=== PATIENT | male | born 1945 | race Two or more races ===

== ENCOUNTER 2024-08-20 17:51 | Emergency (ER) | payer MEDICARE, BC, SELFPAY ==
[2024-08-20 18:23] VITALS: BP 147/97; PULSE 69; RESP 18; TEMP 37.1; O2SAT 96
[2024-08-20 19:19] VITALS: PULSE 88; RESP 16; O2SAT 98
--- NOTE | 2024-08-20 19:47 | XR_ITS ---
Examination: CT cervical spine without contrast 2-D sagittal reconstructions 2-D coronal reconstructions 3-D reconstructions. Exam date and time:August 20, 20247 hrs. Indications: Patient fell today with injury to the neck, neck pain CTDI:vol (mGy) 10.3 DLP: (mGycm) 200 Technique: Multiple 2 mm axial sections of the cervical spine have been obtained. The coronal and sagittal reconstructions have been obtained. 3-D reconstructions have been obtained. Low dose protocols were performed. One or more of the following dose reduction techniques were used; automated exposure control, adjustment of the mA and/or KV according to patient size, use of iterative reconstruction technique. Findings: Axial sections demonstrate intact base of the skull. Extensive transpedicular fusion C1 exhibit satisfactory relationship to the odontoid. No acute cervical vertebral body fracture seen. Alignment posterior spinous processes satisfactory. Impression: No acute cervical fracture.
--- NOTE | 2024-08-20 19:47 | XR_ITS ---
Examination: CT brain head without contrast. 2-D sagittal coronal reconstructions Date and time of exam:August 20, 2024 2057 hrs. Indications: Headache with laceration to the right-sided head today after falling CTDI: vol (mGy):60.8 DLP: (mGycm):1181 Technique: Multiple CT axial sections of the brain have been obtained, 5 mm slice thickness. Contrast has not been administered. 2-D sagittal, coronal reconstructions have been obtained Low dose protocols were performed. One or more of the following dose reduction techniques were used; automated exposure control, adjustment of the mA and/or KV according to patient size, use of iterative reconstruction technique. Findings: Mild to moderate ventricular enlargement No intra or extra-axial hemorrhage No mass effect upon the ventricular system Fourth ventricle midline Soft tissue scalp swelling posterior parietal region Cranial vault is intact Impression: Negative for acute hemorrhage, mass effect or midline shift
--- NOTE | 2024-08-20 19:48 | XR_ITS ---
Examination: PA chest single view Technique: Upright PA chest single view Exam date and time: August 20, 20242005 hrs. Indications: Patient fell today with injury to the chest, chest pain Findings: No pneumothorax Moderate enlargement left ventricle CABG Clavicles ribs appear intact Impression: No pneumothorax or pulmonary contusion
--- NOTE | 2024-08-20 19:49 | PD.EDFALL ---
ED Fall Injury RME/HPI General Chief Complaint: Fall Stated Complaint: FALL Time Seen by Provider: 08/20/24 19:42 Arrival date/time: 08/20/24 17:51 RME / HPI RME / HPI Narrative: 79-year-old male patient with significant history of diabetes mellitus, hypertension, came in for evaluation regarding syncope. Patient does not remember what happened, woke up with contusion hematoma occipital area. Patient complained of headache, described as dull ache severity mild. Denies any neck pain denies any other injury denies any chest pain. No medication was taken prior to arrival. Related Data Home Medications ?Medication ?Instructions ?Recorded ?Confirmed sitagliptin phosphate 100 mg 100 mg PO QDAY 12/11/18 09/20/22 tablet (Januvia) carvedilol 12.5 mg tablet 12.5 mg PO BID 06/27/20 09/20/22 duloxetine 30 mg capsule,delayed 30 mg PO BID 06/27/20 09/20/22 release furosemide 20 mg tablet 20 mg PO QDAY 07/09/20 09/20/22 temazepam 15 mg capsule (Restoril) 15 mg PO HS PRN Insomnia 05/21/22 09/20/22 gabapentin 400 mg capsule 400 mg PO QID 09/11/22 09/20/22 hydrocodone 10 mg-acetaminophen 1 tab PO Q4H PRN Pain 09/11/22 09/20/22 325 mg tablet memantine 7 mg capsule 7 mg PO QDAY 09/11/22 09/20/22 sprinkle,extended release 24hr ferrous sulfate 325 mg (65 mg 325 mg PO BID 09/20/22 09/20/22 iron) tablet Previous Rx's ?Medication ?Instructions ?Recorded cefuroxime axetil 500 mg tablet 500 mg PO BID #14 tabs 08/20/24 Allergies Allergy/AdvReac Type Severity Reaction Status Date / Time asparagus Allergy Severe Hives Verified 09/11/22 14:51 pregabalin Allergy Severe Rash Verified 09/11/22 14:51 Review of Systems Review of Systems Narrative Review of Systems: Review of system reviewed and within normal limits except mentioned in HPI ED Exam Narrative Physical exam: VITAL SIGNS: Reviewed. GENERAL APPEARANCE: Alert and interactive, follows commands, no acute distress, HEAD AND FACE: 5 x 5 cm contusion hematoma scalp, occipital area ENT: PERRL, pink conjunctivitis, eyelid no trauma, Mucous membrane moist. NECK: Supple, nontender, no nuchal rigidity. CHEST: No tenderness, no crepitus, no paradoxical movement, no retractions. LUNGS: Clear, well ventilated, symmetric, no rales, no wheezing, no ronchi, no stridor, good breath sounds bilaterally. HEART: Regular rate, regular rhythm, no murmur, no gallops. ABDOMEN: Soft, positive bowel sounds, nondistended, no guarding, nontender, no rebound, no masses, RECTAL: Deferred. GENITAL: Deferred. NEUROLOGICAL: Gross motor function intact sensory function intact, Appropriate for age. MUSCULOSKELETAL: low back nontender, full range of motion. EXTREMITIES: Nontender, full range of motion. SKIN: Color pink, dry, no rash, no lacerations, no abrasions, no contusions. LYMPHATICS: Deferred. Course Quality Measures none Orders Category Date Time Status CT cervical spine wo con Stat Exams 08/20/24 19:[address] head/brain wo con Stat Exams 08/20/24 19:47 Completed XR chest 1V Stat Exams 08/20/24 19:48 Completed B-Type Natriuretic Peptide Stat Lab 08/20/24 20:00 Completed CBC Stat Lab 08/20/24 20:00 Completed Comprehensive Metabolic Panel Stat Lab 08/20/24 20:00 Completed Partial Thromboplastin Time Stat Lab 08/20/24 20:00 Completed Prothrombin Time with INR Stat Lab 08/20/24 20:00 Completed Troponin I Stat Lab 08/20/24 20:00 Completed Urinalysis, C/S if Indicated Stat Lab 08/20/24 21:26 Completed Urine Culture Stat Lab 08/20/24 21:26 Received Sod Polystyrene Sulfon Susp [Kayexalate Susp] Med 08/20/24 21:57 Discontinued 30 gm PO X1 ONE cephALEXin [Keflex] Med 08/20/24 21:57 Discontinued 500 mg PO X1 ONE Vital Signs Vital signs: Vital Signs Temperature 98.7 F 08/20/24 18:23 Pulse Rate 69 08/20/24 18:23 Respiratory Rate 18 08/20/24 18:23 Blood Pressure 147/97 H 08/20/24 18:23 Pulse Oximetry (%) 96 08/20/24 18:23 Oxygen Delivery Method Room Air 08/20/24 18:23 Fall MDM Narrative MDM Narrative:: CT scan of the head came back unremarkable. CT scan of the neck came back unremarkable. Workup is significant for slight hyperkalemia with 5.4 urinalysis positive for UTI. Patient received Kayexalate in the ED and antibiotic also. Flex Patient data External records reviewed:: None Clinical information provided by:: none Social determinants that could affect healthcare access:: none Patient has the following chronic illnesses:: Diabetes mellitus, hypertension How is presenting disease/condition affected by chronic disease/condition?: exacerbated by Evaluation data The following diagnostics were reviewed and interpreted by me:: lab results, radiology exam(s) and EKG tracing(s) Lab and/or radiology exams considered but not ordered:: None Interpretation Summary: CT scan of the head came back unremarkable. CT scan of the neck came back unremarkable. Chest x-ray also came back unremarkable. Urinalysis positive for UTI CMP is significant for slight hyperkalemia 5.4. Medications / Prescriptions Medications or Prescriptions considered but not ordered:: None Medication administrations:: Medication Administration History Discontinued Medications Cephalexin HCl (Cephalexin 250 Mg Capsule) 500 mg PO X1 ONE Stop: 08/20/24 21:58 Last Admin: 08/20/24 22:05 Dose: 500 mg Documented By: MARGARITO Sodium Polystyrene Sulfonate (Sod Polystyrene Sulfon Susp 15 Gm/60 Ml Btl) 30 gm PO X1 ONE Stop: 08/20/24 21:58 Last Admin: 08/20/24 22:05 Dose: 30 gm Documented By: MARGARITO Keflex and Kayexalate Consultations Consultation(s) initiated? (list below): No Diagnosis Fall Differential Diagnosis: other (Hyperkalemia, UTI, fall, scalp contusion) Most likely diagnosis given after review of the tests above:: Scalp contusion, UTI Admission Indicated Admission indicated?: not indicated Explain why admission is indicated or not indicated:: Stable for discharge Admission Request Was there a request for admission?: No Disposition Plan Disposition Plan: Discharge Discharge Attestation Discharge Attestation: The patient and all family members were given an opportunity to ask questions and understood the discharge instructions. Discharge instructions specifically effects, indications for sooner follow up or return to the emergency department, and the expected course of current diagnosis. Patient condition: Stable Discharge Plan Plan Patient Disposition: HOME (Self Care) Disposition Comment: Stable Prescriptions/Referrals Prescriptions/Med Rec: New cefuroxime axetil 500 mg tablet 500 mg PO BID Qty: 14 0RF No Action duloxetine 30 mg capsule,delayed release(DR/EC) 30 mg PO BID carvedilol 12.5 mg Tablet 12.5 mg PO BID temazepam [Restoril] 15 mg Capsule 15 mg PO HS PRN (Reason: Insomnia) Januvia 100 mg Tablet 100 mg PO QDAY furosemide 20 mg tablet 20 mg PO QDAY Hold Instructions: Resume on 07/19/20. ferrous sulfate 325 mg (65 mg iron) tablet 325 mg PO BID Patient Comments: TAKE 1 TABLET BY MOUTH TWICE A DAY gabapentin 400 mg capsule 400 mg PO QID Patient Comments: TAKE 1 CAPSULE BY MOUTH 4 TIMES A DAY memantine 7 mg capsule,sprinkle,ER 24hr 7 mg PO QDAY Patient Comments: TAKE 1 CAPSULE BY MOUTH EVERY DAY hydrocodone-acetaminophen 10-325 mg tablet 1 tab PO Q4H PRN (Reason: Pain) Referrals: Roger Hoskins MD [Primary Care Provider] - In 1 week Problem List Clinical Impression: UTI (urinary tract infection), Fall, Contusion of scalp Patient/Caregiver Discharge Instructions Discharge Activity: activity as tolerated Education Materials: ED Head Injury (Adult) Additional Instructions: Thank you for the opportunity for serving you today. You are stable for discharged . You are advised to: Follow-up with your PCP in 1 to 2 days Return to ED for worsening of symptoms Increase oral fluids Take medication as prescribed Print Language: Albanian Stand Alone Forms: [employer] Award Info., Patient Portal Info Letter JOSE/ARMAAN Supervising Physician JOSE/ARMAAN Supervising Physician: MD Alla
[2024-08-20 20:14] LABS: Basophils % (Auto) 0 % (0-2.5); Eosinophils # (Auto) 0.3 Thou/mm3 (0.0-0.5); Eosinophils % (Auto) 3 % (0-10); Hematocrit 41.4 % (41.0-53.0); Hemoglobin 13.7 g/dL (13.5-16.0); Immature Granulocytes % (Auto) 0 % (0-0); Immature Granulocytes Auto 0.03 Thou/mm3 (0.00-0.00); Lymphocytes # (Auto) 2.3 Thou/mm3 (1.0-4.8); Lymphocytes % (Auto) 22 % (10-50); Mean Corpuscular HGB Conc 33.1 g/dl (31.0-37.0); Mean Corpuscular Hemoglobin 30.8 pg (25.0-35.0); Mean Corpuscular Volume 93 fL (80-100); Monocytes # (Auto) 0.8 Thou/mm3 (0.0-0.8); Monocytes % (Auto) 8 % (0-12); Neutrophils % (Auto) 67 % (37-80); Nucleated Red Blood Cell % 0 /100 WBC (0); Platelet Count 172 Thou/mm3 (140-440); Red Blood Count 4.45 Miln/mm3 (4.50-5.90); White Blood Count 10.5 Thou/mm3 (3.8-10.6)
[2024-08-20 20:22] LABS: Partial Thromboplastin Time 27.3 Seconds (22.0-36.0)
[2024-08-20 20:25] LABS: B-Type Natriuretic Peptide 109 pg/mL (0-100)
[2024-08-20 20:26] LABS: Alanine Aminotransferase 7 U/L (10-49); Albumin, Serum 4.4 gm/dL (3.4-4.8); Albumin/Globulin Ratio 1.6 (1.2-2.2); Alkaline Phosphatase 60 U/L (46-116); Anion Gap 5 (7-16); Aspartate Amino Transferase 15 U/L (0-34); BUN/Creatinine Ratio 21 Ratio (12-20); Bilirubin,Total 0.5 mg/dL (0.3-1.2); Blood Urea Nitrogen 27 mg/dL (9-23); Calcium 9.8 mg/dL (8.3-10.6); Calcium (Corrected) 9.8 mg/dL (8.5-10.1); Chloride 102 mMol/L (98-107); Creatinine (Component) 1.3 mg/dL (0.6-1.3); Globulin 2.8 gm/dL (2.3-3.5); Glucose 124 mg/dL (74-106); Osmolality,Calculated 279 (275-295); Potassium 5.4 mMol/L (3.4-5.1); Sodium 137 mMol/L (136-145); Total Protein 7.2 gm/dL (5.7-8.2); Troponin I < 0.020 ng/mL (0.0-0.045); eGFR 56 See Note
[2024-08-20 21:45] LABS: Collection Type, Urine Clean Catch; RBC,Urine 0 /hpf (0-3); Squamous Epithelial Cell,Urine 0 /hpf (0-5)
[2024-08-20 21:54] LABS: Bacteria,Urine 4+; Bilirubin,Urine Negative (Negative); Blood,Urine Negative (Negative); Clarity,Urine Turbid (Clear/Hazy); Color,Urine Yellow (Lt Yel-Yel); Glucose, Urine Negative (Negative); Hyaline Casts,Urine < 1 /hpf (0-1); Ketones,Urine Trace (Negative); Leukocyte Esterase,Urine Positive (Negative); Nitrite,Urine Negative (Negative); Protein,Urine 1+ (Neg - Trace); WBC,Urine 32 /hpf (0-5)
[2024-08-20 21:55] LABS: Culture Indicated,Urine Yes
[2024-08-20] MEDS: cephALEXin 250 MG CAPSULE 500 MG PO (22:05)
[2024-08-20] MEDS: SOD POLYSTYRENE SULFON SUSP 15 GM/60 ML BTL 30 GM PO (22:05)
[2024-08-20 22:10] VITALS: RESP 18
== END 2024-08-20 22:10 | disposition home or self-care (01) ==
PROVIDERS: Nurse Practitioner Family; Emergency Provider Emergency Medicine; PCP Family Medicine
DX: S00.03XA Contusion of scalp, initial encounter (principal); N39.0 Urinary tract infection, site not specified; E87.5 Hyperkalemia; S29.9XXA Unspecified injury of thorax, initial encounter; S19.9XXA Unspecified injury of neck, initial encounter; W19.XXXA Unspecified fall, initial encounter
CPT/HCPCS: 36415; 70450; 71045; 72125; 80053; 81001; 83880; 84484; 85025; 85610; 85730; 87077; 87086; 87186; 99284; A9270

== ENCOUNTER → 2024-11-08 | Outpatient (CLI) | payer MEDICARE, SELFPAY ==
[2024-11-08 12:03] LABS: Creatinine MALB Rnd Ur 115 mg/dL (30-125); Microalbumin Creat Ratio 51 mg/gCrea (<30); Microalbumin, Random Urine 59 mg/L (0-300)
[2024-11-08 12:07] LABS: Vitamin D 25 Hydroxy Total 25.8 ng/mL (7.3-40.2)
[2024-11-08 12:08] LABS: Alanine Aminotransferase 9 U/L (10-49); Albumin, Serum 4.2 gm/dL (3.4-4.8); Albumin/Globulin Ratio 1.6 (1.2-2.2); Alkaline Phosphatase 61 U/L (46-116); Anion Gap 5 (7-16); Aspartate Amino Transferase 12 U/L (0-34); BUN/Creatinine Ratio 17 Ratio (12-20); Bilirubin,Total 0.9 mg/dL (0.3-1.2); Blood Urea Nitrogen 19 mg/dL (9-23); Calcium 9.2 mg/dL (8.3-10.6); Calcium (Corrected) 9.2 mg/dL (8.5-10.1); Cardiac Risk Estimate 3.6 RATIO (4.0-6.7); Chloride 99 mMol/L (98-107); Cholesterol 174 mg/dL (132-200); Creatinine (Component) 1.1 mg/dL (0.6-1.3); Globulin 2.6 gm/dL (2.3-3.5); Glucose 126 mg/dL (74-106); HDL Cholesterol 48 mg/dL (40-60); LDL Cholesterol,Calculated 95 mg/dL (0-130); Osmolality,Calculated 272 (275-295); Sodium 134 mMol/L (136-145); Total Protein 6.8 gm/dL (5.7-8.2); Triglycerides 153 mg/dL (30-150); eGFR > 60 See Note
[2024-11-08 12:11] LABS: Glucose Estimated Average 137 mg/dL (80-131); Hemoglobin A1C 6.4 % Hgb (4.8-6.0)
== END | disposition home or self-care (01) ==
LOC: COPL 10:51
PROVIDERS: PCP Family Medicine; Referring Provider Family Medicine; Visit Provider Family Medicine
DX: E11.65 Type 2 diabetes mellitus with hyperglycemia (principal); E78.1 Pure hyperglyceridemia; E55.9 Vitamin D deficiency, unspecified
CPT/HCPCS: 36415; 80053; 80061; 82043; 82306; 82570; 83036

== ENCOUNTER → 2025-09-27 | Outpatient (CLI) | payer MEDICARE, BC, SELFPAY | END | disposition home or self-care (01) | LOC: SLDO 14:29 | PROVIDERS: PCP Family Medicine; Referring Provider Family Medicine; Visit Provider Family Medicine | DX: N39.0 Urinary tract infection, site not specified (principal) | CPT/HCPCS: 87077; 87086; 87186 ==